=== PATIENT | female | born 1950 | race African-American/Black ===

== ENCOUNTER 2017-03-08 17:07 | Emergency (ER) | payer MEDICAID, MEDICARE ==
[~2017-03-08] VITALS: Ht 170.2 cm; Wt 77.0 kg
[~2017-03-08 17:07] MED LIST: GLIM2 PO; LISI-660 PO; METF500T4 PO; MONT10TA21 PO; OMEP20 PO
[2017-03-08 18:19] LABS: BASOPHILS # (AUTO) 0.02 K/uL (0.00-0.20); BASOPHILS % (AUTO) 0.3 % (0.0-2.0); EOSINOPHILS # (AUTO) 0.12 K/uL (0.00-0.70); EOSINOPHILS % (AUTO) 1.47 % (1.0-6.0); HEMOGLOBIN 15.6 g/dL (12.0-16.0); LYMPHOCYTES # (AUTO) 2.6 K/uL (1.0-4.8); MEAN CORPUSCULAR HGB CONC 33.2 G/dL (31.0-37.0); MEAN CORPUSCULAR VOLUME 96 fL (80-100); MONOCYTES # (AUTO) 0.4 K/uL (0.1-1.0); NEUTROPHILS # (AUTO) 5.2 K/uL (1.8-7.7); NEUTROPHILS % (AUTO) 62.2 % (40.0-70.0); PLATELET COUNT (AUTO) 183 K/uL (150-450); RED BLOOD CELL COUNT(AUTO) 4.89 MIL/uL (4.00-5.20); RED CELL DISTRIBUTION WIDTH 13.3 % (11.5-14.5); WHITE BLOOD COUNT (AUTO) 8.3 K/uL (4.5-11.0)
[2017-03-08 18:28] LABS: ANION GAP 8 mmol/L (8-16); CALCIUM, TOTAL 9.1 mg/dL (8.8-10.5); CARBON DIOXIDE 26 mmol/L (22-29); CHLORIDE 101 mmol/L (98-107); CREATININE 0.86 mg/dL (0.60-1.30); GLOMERULAR FILTR. RATE CALC > 60 mL/min (>60); POTASSIUM 4.2 mmol/L (3.5-5.1); SODIUM SERUM 135 mmol/L (136-145); UREA NITROGEN, BLOOD 9 mg/dL (7-18)
[2017-03-08 18:30] LABS: PROTHROMBIN TIME 10.6 SEC (9.4-11.6)
[2017-03-08 18:35] LABS: ALANINE AMINOTRANSFERASE 15 U/L (12-78); ALBUMIN 3.4 g/dL (3.4-5.0); ASPARTATE AMINOTRANSFERASE 9 U/L (15-37); BILIRUBIN,TOTAL 0.5 mg/dL (0.1-1.0); CREATINE KINASE, TOTAL 30 U/L (26-192); TOTAL PROTEIN, SERUM 6.9 g/dL (6.4-8.2)
[2017-03-08 18:38] LABS: B-TYPE NATRIURETIC PEPTIDE 35 pg/mL (0-100)
[2017-03-08 19:25] VITALS: BP 144/80
== END 2017-03-08 19:26 | disposition home or self-care (01) ==
LOC: EMS 17:08
DX: S20.212A Contusion of left front wall of thorax, initial encounter (principal); I10 Essential (primary) hypertension; E11.9 Type 2 diabetes mellitus without complications; J45.909 Unspecified asthma, uncomplicated; F17.210 Nicotine dependence, cigarettes, uncomplicated; W19.XXXA Unspecified fall, initial encounter; Y93.89 Activity, other specified; Y92.9 Unspecified place or not applicable; Y99.9 Unspecified external cause status
CPT/HCPCS: 93005; 99285

== ENCOUNTER 2020-11-03 17:09 | Emergency (ER) | payer MEDICARE ==
[~2020-11-03] VITALS: Ht 165.1 cm; Wt 81.8 kg
[~2020-11-03 17:09] MED LIST changes: -GLIM2 PO; -LISI-660 PO; +LISI-892 PO; +METF-960 PO; -METF500T4 PO; +MONT-35 PO; -MONT10TA21 PO
[2020-11-03 20:18] LABS: BASOPHILS % (AUTO) 0.7 % (0.0-2.0); HEMATOCRIT 41.2 % (36-46); HEMOGLOBIN 13.6 g/dL (12.0-16.0); LYMPHOCYTES # (AUTO) 1.3 K/uL (1.0-4.8); LYMPHOCYTES % (AUTO) 24.6 % (22.0-44.0); MEAN CORPUSCULAR HGB CONC 32.9 G/dL (31.0-37.0); MEAN CORPUSCULAR VOLUME 100 fL (80-100); MONOCYTES # (AUTO) 0.5 K/uL (0.1-1.0); MONOCYTES % (AUTO) 9.2 % (2.0-9.0); NEUTROPHILS # (AUTO) 3.4 K/uL (1.8-7.7); NEUTROPHILS % (AUTO) 63.5 % (40.0-70.0); PLATELET COUNT (AUTO) 186 K/uL (150-450); RED BLOOD CELL COUNT(AUTO) 4.12 MIL/uL (4.00-5.20); RED CELL DISTRIBUTION WIDTH 13.1 % (11.5-14.5)
[2020-11-03 20:38] LABS: CALCIUM, TOTAL 9.1 mg/dL (8.8-10.5); CREATININE 1.21 mg/dL (0.60-1.30); POTASSIUM 4.9 mmol/L (3.5-5.1)
[2020-11-03 20:49] LABS: ALBUMIN 2.9 g/dL (3.4-5.0); BILIRUBIN,TOTAL 0.2 mg/dL (0.1-1.0); TOTAL PROTEIN, SERUM 6.2 g/dL (6.4-8.2)
[2020-11-03 21:13] LABS: APPEARANCE,URINE CLOUDY (CLEAR); BILIRUBIN,URINE NEGATIVE (NEGATIVE); GLUCOSE, URINE (UA) 500 mg/dL (NEGATIVE); KETONES,URINE NEGATIVE (NEGATIVE); LEUKOCYTE ESTERASE ,URINE MODERATE (NEGATIVE); NITRATE,URINE NEGATIVE (NEGATIVE); OCCULT BLOOD,URINE MODERATE (NEGATIVE); PROTEIN,URINE SEE CONFIRM (NEGATIVE); UROBILINOGEN,URINE 0.2 mg/dL (<=1.0)
[2020-11-03] MEDS ORDERED: BARIUM SULFATE 0.1% SUSPENSION 450 ML BOTTLE PO ONE (21:15)
[2020-11-03] MEDS ORDERED: SODIUM CHLORIDE 0.9% 100 ML ONE (21:15)
[2020-11-03] MEDS ORDERED: IOVERSOL 350 MG/ML 100 ML VIAL ONE (21:15)
[2020-11-03 21:31] LABS: SULFOSALICYLIC ACID,URINE 3+ (Negative)
[2020-11-03 21:32] LABS: BACTERIA,URINE Moderate /HPF (None Seen); RBC,URINE 0-2 /HPF (0-2); SQUAMOUS EPITHELIAL CELL,UR Many /LPF (None Seen)
[2020-11-04] MEDS ORDERED: INSULIN REGULAR, HUMAN 100 UNITS/ML IVP ONE (01:00)
[2020-11-04 01:39] VITALS: BP 154/60
[2020-11-04 01:49] LABS: GLUCOSE,POINT OF CARE 273 MG/DL (70-110)
== END 2020-11-04 01:42 | disposition home or self-care (01) ==
LOC: EMS 17:14
DX: N63.13 Unspecified lump in the right breast, lower outer quadrant (principal); E11.65 Type 2 diabetes mellitus with hyperglycemia; J45.909 Unspecified asthma, uncomplicated; I10 Essential (primary) hypertension; F17.210 Nicotine dependence, cigarettes, uncomplicated; Z79.899 Other long term (current) drug therapy; Z79.84 Long term (current) use of oral hypoglycemic drugs
CPT/HCPCS: 36415; 71260; 74177; 80053; 81001; 82962; 83690; 84484; 85025; 87086; 93005; 96374; 99285; A9575; J1815; J7050; Q9967; 72193; 74160

== ENCOUNTER 2020-12-04 17:36 | Emergency (ER) | payer MEDICARE ==
[~2020-12-04] VITALS: Ht 160 cm; Wt 86.4 kg
[2020-12-04] MEDS ORDERED: FURO-152 PO (18:07)
[2020-12-04] MEDS ORDERED: MAAL30 PO (18:07)
[2020-12-04] MEDS ORDERED: CALC1TAB93 PO (18:07)
[2020-12-04] MEDS ORDERED: NICO-803 TD (18:07)
[2020-12-04] MEDS ORDERED: ATOR40TA71 PO (18:07)
[2020-12-04] MEDS ORDERED: ALBU8.5H8 IH (18:07)
[2020-12-04] MEDS ORDERED: TRAM50TA2 PO (18:07)
[2020-12-04] MEDS ORDERED: CLOP75TA14 PO (18:07)
[2020-12-04] MEDS ORDERED: INSU100V SQ (18:07)
[2020-12-04] MEDS ORDERED: CARV3.1231 PO (18:07)
[2020-12-04] MEDS ORDERED: INSU100V36 SQ (18:07)
[2020-12-04] MEDS ORDERED: ASPI-1227 PO (18:07)
[2020-12-04 19:35] VITALS: BP 137/69
== END 2020-12-04 19:39 | disposition home or self-care (01) ==
LOC: EMS 17:38
DX: S81.801A Unspecified open wound, right lower leg, initial encounter (principal); J45.909 Unspecified asthma, uncomplicated; F17.210 Nicotine dependence, cigarettes, uncomplicated; E11.9 Type 2 diabetes mellitus without complications; Z79.899 Other long term (current) drug therapy; X58.XXXA Exposure to other specified factors, initial encounter; Y93.89 Activity, other specified; Y92.89 Other specified places as the place of occurrence of the external cause; Y99.8 Other external cause status
CPT/HCPCS: 93971; 99284